=== PATIENT | female | born 1975 | race Two or more races ===

== ENCOUNTER 2024-12-21 09:56 | Outpatient (RCR) | payer MEDICAID, SELFPAY | END 2024-12-23 23:59 | disposition home or self-care (01) | LOC: SCTC 09:56 | PROVIDERS: PCP Nurse Practitioner Family; Referring Provider Nurse Practitioner Family; Visit Provider Nurse Practitioner Family | DX: Z09 Encounter for follow-up examination after completed treatment for conditions other than malignant neoplasm (principal); Z86.2 Personal history of diseases of the blood and blood-forming organs and certain disorders involving the immune mechanism | CPT/HCPCS: 99212; G0463 ==